=== PATIENT | male | born 1975 | race Asian ===

== ENCOUNTER → 2020-01-18 | Outpatient (CLI) | payer MEDICARE, OTHER ==
[~2020-01-18] MED LIST: DESM1SPR; HYDR-643 PO; MAXA10TA14 PO; MINI2CAP PO; PRED5TA PO; PROAAER10 INH; ZOLO100T PO
== END ==
LOC: M LABSMTC 09:51 → EDUNIT# 09:55
PROVIDERS: ATTEND Anesthesiology
DX: Z01.812 Encounter for preprocedural laboratory examination (principal); Z20.828 Contact with and (suspected) exposure to other viral communicable diseases

== ENCOUNTER 2020-01-23 07:07 | Day surgery (SDC) | payer MEDICARE, OTHER ==
[~2020-01-23] VITALS: Ht 162.6 cm; Wt 70.7 kg
[~2020-01-23 07:07] MED LIST changes: +NS 1,000 ML IV ONE
[2020-01-23] MEDS ORDERED: propofoL 200 MG/20 ML VIAL As Ordered ONE ×2 (08:20→08:28)
--- NOTE | 2020-01-23 08:52 | ROOR ---
Patient Name: Quoc Downey Procedure Date: 01/23/2020 8:18 AM Date of : 1975 Age: 44 Room: [facility] Gender: Male Note Status: Finalized Procedure: Colonoscopy Indications: Hematochezia Providers: Pantera Cabrera MD Referring MD: REMINGTON MACEDO MD Requesting Provider: Medicines: Monitored Anesthesia Care Complications: No immediate complications. Procedure: Pre-Anesthesia Assessment: - Prior to the procedure, a History and Physical was performed, and patient medications and allergies were reviewed. The patient is competent. The risks and benefits of the procedure and the sedation options and risks were discussed with the patient. All questions were answered and informed consent was obtained. Patient identification and proposed procedure were verified by the physician, the nurse and the anesthesiologist in the procedure room. Mental Status Examination: alert and oriented. Airway Examination: normal oropharyngeal airway and neck mobility. Respiratory Examination: clear to auscultation. CV Examination: normal. Prophylactic Antibiotics: The patient does not require prophylactic antibiotics. Prior Anticoagulants: The patient has taken no previous anticoagulant or antiplatelet agents. ASA Grade Assessment: II - A patient with mild systemic disease. After reviewing the risks and benefits, the patient was deemed in satisfactory condition to undergo the procedure. The anesthesia plan was to use monitored anesthesia care (MAC). Immediately prior to administration of medications, the patient was re-assessed for adequacy to receive sedatives. The heart rate, respiratory rate, oxygen saturations, blood pressure, adequacy of pulmonary ventilation, and response to care were monitored throughout the procedure. The physical status of the patient was re-assessed after the procedure. The Colonoscope was introduced through the anus and advanced to the terminal ileum, with identification of the appendiceal orifice and IC valve. The colonoscopy was performed without difficulty. The patient tolerated the procedure well. The quality of the bowel preparation was good. The ileocecal valve, appendiceal orifice, and rectum were photographed. Scope insertion time was 2 minutes. Scope withdrawal time was 9 minutes. The total duration of the procedure was 14 minutes. Findings: The perianal and digital rectal examinations were normal. The terminal ileum appeared normal. Non-bleeding external and internal hemorrhoids were found during retroflexion. The hemorrhoids were medium-sized. A post hemorrhoidal therapy scar was found in the distal rectum. The scar tissue was healthy in appearance. No other significant abnormalities were identified in a careful examination of the remainder of the colon. Impression: - The examined portion of the ileum was normal. - Non-bleeding external and internal hemorrhoids. - No specimens collected. Recommendation: - Patient has a contact number available for emergencies. The signs and symptoms of potential delayed complications were discussed with the patient. Return to normal activities tomorrow. Written discharge instructions were provided to the patient. - High fiber diet. - Continue present medications. - Preparation H ointment: Apply externally daily for 5 days. - Repeat colonoscopy in 10 years for screening purposes. - Return to primary care physician. Procedure Code(s): --- Professional --- 50489, Colonoscopy, flexible; diagnostic, including collection of specimen(s) by brushing or washing, when performed (separate procedure) Diagnosis Code(s): --- Professional --- K64.8, Other hemorrhoids K92.1, Melena (includes Hematochezia) CPT copyright 2019 [employer]. All rights reserved. The codes documented in this report are preliminary and upon it technician review may be revised to meet current compliance requirements. Pantera Cabrera MD Pantera Cabrera MD 01/23/2020 8:51:54 AM Electronically signed by Pantera Cabrera MD Number of Addenda: 0 Note Initiated On: 01/23/2020 8:18 AM Estimated Blood Loss: Estimated blood loss: none.
[2020-01-23 09:07] VITALS: BP 116/81
== END 2020-01-23 09:10 | disposition home or self-care (01) ==
LOC: M OPP 07:07
PROVIDERS: ATTEND Internal Medicine Gastroenterology
DX: K64.8 Other hemorrhoids (principal); K92.1 Melena; E23.2 Diabetes insipidus; Z79.899 Other long term (current) drug therapy

== ENCOUNTER → 2020-04-12 | Outpatient (CLI) | payer OTHER ==
[~2020-04-12] MED LIST changes: -NS 1,000 ML IV ONE; +PROHANCE 279.3MG/ML 5ML VIAL As Ordered ONE
--- NOTE | 2020-04-12 20:37 | REPVR ---
PROCEDURE INFORMATION: Exam: MR Head Without and With Contrast, Sella Exam date and time: 04/12/2020 6:19 PM Age: 44 years old Clinical indication: Condition or disease; Other: Pituitary gland dysfunction; Prior surgery; Surgery date: 6+ months; Surgery type: Resection TECHNIQUE: Imaging protocol: MR of the head without and with intravenous contrast. Exam focused on the sella. Contrast material: PROHANCE; Contrast volume: 7 ml; Contrast route: INTRAVENOUS (IV); COMPARISON: No relevant prior studies available. FINDINGS: Brain: There is probable fat packing in the floor of the pituitary fossa measuring 1.4 cm AP x 8.5 mm cc x 1.9 cm in width. There is a lesion superior and to the left of the fat packing and just inferior to the optic nerves within the pituitary fossa measuring 1.3 cm in width x 8 mm AP x 1 cm cc. There is a 2nd lesion in the in the pituitary fossa along the left lateral aspect of the fat packing. It measures 1.4 cm AP x 1 cm AP x 1.4 cm cc. Both of these areas enhance on the dynamic series. The more superior of the lesions appears to be contiguous with the infundibulum which enhances avidly. This lesion does superiorly displaces the optic nerves. There appears to be a cleft between the 2 lesions. Series 801 image 1 frame [id number]. The lesions do not appear to extend into the cavernous sinuses. There is no restricted diffusion to suggest acute infarction. Cerebral ventricles: Unremarkable. No Ventriculomegaly. Paranasal sinuses: The right maxillary antrum is hypoplastic. There are no air-fluid levels in the paranasal sinuses. Mastoid air cells: The inferior margins of the mastoids do not appear to be pneumatized. No significant mastoid effusions. Pituitary gland and sella: As above. Other vasculature: Flow voids are noted in both internal carotid arteries in the cavernous sinuses indicating patency. Bones/joints: Postoperative change. IMPRESSION: The more superior of the 2 lesions appears to be contiguous with and or emanate from the infundibulum and superiorly displaces mildly compressing the proximal optic nerves. The 2nd lesion may be by the diaphragma sellae. 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 Electronically signed by: Rocio Hansen On 04/12/2020 20:37:03 PM
== END ==
LOC: M RAD 17:22
PROVIDERS: ATTEND Nurse Practitioner Family
DX: E23.7 Disorder of pituitary gland, unspecified (principal)
CPT/HCPCS: 70553; A9576